=== PATIENT | female | born 1975 | race Two or more races ===

== ENCOUNTER 2019-02-14 09:59 | Inpatient (IN) | payer OTHER ==
[2019-02-14] MEDS ORDERED: EFFEXOR XR150 MG (11:54)
[2019-02-14] MEDS ORDERED: EFFEXOR XR75 MG (11:55)
[2019-02-14] MEDS ORDERED: CLONAZEPAM2 M1 (11:55)
[2019-02-14] MEDS ORDERED: ABILIFY 15 MG (11:55)
[2019-02-21] MEDS ORDERED: ARIPIPRAZOLE15 MG PO (08:25)
[2019-02-21] MEDS ORDERED: TRAZODONE HCL100 MG PO (08:25)
== END 2019-02-24 11:33 | disposition home or self-care (01) | DRG 742 ==
LOC: O/R 10:00 → OB/GYN 02-21 08:01
PROVIDERS: ADMIT Obstetrics & Gynecology
PROC: 0UT90ZL Resection of Uterus, Supracervical, Open Approach (ICD-10-PCS; principal; 2019-02-21 14:00)
DX: D25.1 Intramural leiomyoma of uterus (principal); D62 Acute posthemorrhagic anemia; N84.0 Polyp of corpus uteri; N73.6 Female pelvic peritoneal adhesions (postinfective)

== ENCOUNTER 2019-09-21 12:42 | Emergency (ER) | payer OTHER ==
[~2019-09-21] VITALS: Ht 167.6 cm; Wt 97.5 kg
[~2019-09-21 12:42] MED LIST: ABILIFY 15 MG; ARIPIPRAZOLE15 MG PO; CLONAZEPAM2 M1; EFFEXOR XR150 MG; EFFEXOR XR75 MG; TRAZODONE HCL100 MG PO
== END 2019-09-21 14:14 | disposition home or self-care (01) ==
LOC: ER 12:42
DX: M54.5 Low back pain (principal)

== ENCOUNTER 2023-12-07 05:24 | Day surgery (SDC) | payer OTHER ==
[2023-12-01 11:08] LABS: HEMATOCRIT 38.9 % (36.0-45.00); HEMOGLOBIN 12.9 g/dL (12.0-15.00); MEAN CORPUSCULAR HEMOGLOBIN 26.9 pg (27.00-32.0); MEAN CORPUSCULAR HGB CONC 33.3 g/dl (32.0-36.0); PLATELET COUNT 358 K/uL (150-450); RED CELL DISTRIBUTION WIDTH 14.8 % (11.5-14.5)
[2023-12-01 11:16] LABS: PH,URINE 5.5 (5.0-8.0); URINE APPEARANCE Clear; URINE BILIRRUBIN Negative (NEGATIVE); URINE BLOOD Negative; URINE COLOR Yellow; URINE GLUCOSE Negative (NEGATIVE); URINE KETONE Negative (NEGATIVE); URINE LEUKOCYTE Negative; URINE NITRATE Negative; URINE PROTEIN Negative (NEGATIVE); URINE UROBILINOGEN 0.2 E.U./dl
[2023-12-01 11:18] LABS: URINE BACTERIA 2396.1 uL (0.0-1933); URINE EPITHELIAL CELLS 19.9 uL (0.0-38.8); URINE RBC 3.3 uL (0.0-20.8); URINE WBC 12.3 uL (0.0-23.2)
[2023-12-01 11:40] LABS: INR 0.97; PARTIAL THROMBOPLASTIN TIME 29.8 SECONDS (22.0-34.0); PROTHROMBIN TIME 10.2 SECONDS (9.0-11.5)
[2023-12-01 12:15] LABS: ALBUMIN 3.7 gm/dL (3.4-5.0); BILIRUBIN TOTAL 0.34 mg/dL (0.3-1.2); CALCIUM 10.2 mg/dL (8.5-10.1); CREATININE SERUM 0.84 mg/dL (0.55-1.02); GFR 71.77; GLOBULINA 3.8 G/DL (2.4-3.5); POTASSIUM 4.8 mEq/L (3.5-5.1); TOTAL PROTEIN 7.5 gm/dL (6.4-8.2)
[~2023-12-07] VITALS: Ht 167.6 cm; Wt 113.0 kg
[2023-12-07] MEDS ORDERED: BUPIVACAINE HCL/MPF 0.5% 30ML VIAL ONE (07:23)
[2023-12-07] MEDS ORDERED: LIDOCAINE HCL 1% 20ML VIAL IJ ONE (07:23)
[2023-12-07] MEDS ORDERED: NEOMYCIN/BACITRACIN/POLYMYXINB 14 G TUBE TOP ONE (08:00)
[2023-12-07] MEDS ORDERED: BUPIVACAINE HCL/PF 0.25% 30ML VIAL InF ONE (08:00)
[2023-12-07] MEDS ORDERED: CEFAZOLIN SODIUM 1,000 MG VIAL IV ONE (08:00)
[2023-12-07] MEDS ORDERED: LIDOCAINE HCL 1% 10ML VIAL IJ SCH (08:00)
== END 2023-12-07 11:05 | disposition home or self-care (01) ==
LOC: CIR.AMB 05:24
PROVIDERS: ATTEND Surgery Surgery of the Hand
DX: M65.841 Other synovitis and tenosynovitis, right hand (principal); Z88.5 Allergy status to narcotic agent; F41.8 Other specified anxiety disorders; I82.409 Acute embolism and thrombosis of unspecified deep veins of unspecified lower extremity